=== PATIENT | male | born 1960 | race Caucasian/White ===

== ENCOUNTER 2017-09-01 07:20 | Day surgery (SDC) | payer MEDICAID ==
[2017-09-01] VITALS (13 sets, daily range): BP systolic 103–139; BP diastolic 64–87
[~2017-09-01] VITALS: Ht 177.8 cm; Wt 113.0 kg
[~2017-09-01 07:20] MED LIST: ALB0.5UD IH; ALBU18HF2 INH; ALLO100T PO; ASPI-611 PO; CYCL-1 PO; FLAX100015 PO; FLO110IN INH; FURO-150 PO; GABA300C PO; IBUP-1986 PO; LEVO100T PO; MORP30TA60 PO; OXYC-150 PO; PANT-47 PO; SPIIN INH
[2017-09-01] MEDS ORDERED: normal saline 1000ml 1,000 ML IV SCH ×2 (07:40→11:40)
[2017-09-01] MEDS ORDERED: diphenhydrAMINE 25mg capsule PO PRN (07:40)
[2017-09-01] MEDS ORDERED: nitroGLYCERIN 0.4mg SUBLingual tab SL PRN ×2 (07:40→11:45)
[2017-09-01] MEDS ORDERED: LORazepam 0.5 MG tablet PO PRN (07:40)
[2017-09-01] MEDS ORDERED: CETI10CA PO (07:58)
[2017-09-01] MEDS ORDERED: UMEC1DIS INH (07:58)
[2017-09-01] MEDS ORDERED: midazolam 2 mg/2 ml injection ONE ×2 (08:42→09:47)
[2017-09-01] MEDS ORDERED: fentaNYL/PF 50MCG/1 ML 2ML syringe ONE ×2 (08:42→10:04)
[2017-09-01] MEDS ORDERED: LIDOcaine 1%/PF (10mg/ml) 5ml vial ONE (08:42)
[2017-09-01] MEDS ORDERED: iohexol 350 MG/ML 50ML vial IV ONE ×2 (08:43→09:52)
[2017-09-01] MEDS ORDERED: heparin 1,000 UNITS/NS 500ml 500 ML ONE (08:43)
[2017-09-01] MEDS ORDERED: iohexol 350MG/ML 100ml bottle IV ONE (08:43)
[2017-09-01 08:57] LABS: ALBUMIN 4.1 G/DL (3.4-5.0); ANION GAP 8 (8-16); BLOOD UREA NITROGEN 21 MG/DL (7-18); BUN/CREATININE RATIO 16.8 (5.4-32.0); CALCIUM 9.6 MG/DL (8.5-10.1); CHLORIDE 104 MMOL/L (99-107); CREATININE 1.25 MG/DL (0.60-1.10); GLUCOSE 105 MG/DL (70-104); POTASSIUM 4.7 MMOL/L (3.5-5.1); SODIUM 140 MMOL/L (135-145); eGFR 59 ML/MIN
[2017-09-01] MEDS ORDERED: ondansetron/PF 4mg/2ml inj IV PRN (11:40)
[2017-09-01] MEDS ORDERED: OXAZEpam 15mg capsule PO PRN (11:45)
[2017-09-01] MEDS ORDERED: proCHLORperazine 10 MG/2 ml inj IV PRN (11:45)
[2017-09-01] MEDS ORDERED: MORPHINE 2MG in 2ml NS syringe IV PRN (11:45)
[2017-09-01 15:21] LABS: ISTAT HGB ART 16.7 g/dl (14.0-18.0); ISTAT Hct ART 49 %PCV (42-52); ISTAT Hct MIX 44 %PCV (42-52); ISTAT O2 SATURATION ARTERIAL 96 % (95-98); ISTAT O2 SATURATION MIX VENOUS 62 % (60-80); ISTAT SOURCE ART; ISTAT SOURCE MIX
[2017-09-01] MEDS ORDERED: morphine 4 MG/ML inj SYRINge IV ONE (15:30)
== END 2017-09-01 16:58 | disposition home or self-care (01) ==
LOC: SSTAY O 07:20
PROVIDERS: ATTEND Internal Medicine Cardiovascular Disease
DX: I25.10 Atherosclerotic heart disease of native coronary artery without angina pectoris (principal); J44.9 Chronic obstructive pulmonary disease, unspecified; B19.20 Unspecified viral hepatitis C without hepatic coma; K21.9 Gastro-esophageal reflux disease without esophagitis; K74.60 Unspecified cirrhosis of liver; I27.20 Pulmonary hypertension, unspecified; I35.2 Nonrheumatic aortic (valve) stenosis with insufficiency; E78.5 Hyperlipidemia, unspecified; E03.9 Hypothyroidism, unspecified; I50.9 Heart failure, unspecified; Z72.89 Other problems related to lifestyle; Z79.1 Long term (current) use of non-steroidal anti-inflammatories (NSAID); Z88.5 Allergy status to narcotic agent; Z88.6 Allergy status to analgesic agent; Z88.8 Allergy status to other drugs, medicaments and biological substances; Z79.82 Long term (current) use of aspirin; Z87.891 Personal history of nicotine dependence; Z98.890 Other specified postprocedural states; Z79.899 Other long term (current) drug therapy
CPT/HCPCS: 36415; 80048; 82803; 85014; 93460; 93567; 99152; 99153; A6257; C1760; C1769; J1644; J2001; J2250; J2270; J2274; J3010; J7030; Q0163; Q9967; A4620